=== PATIENT | female | born 1965 | race Two or more races ===

== ENCOUNTER 2021-11-12 21:51 | Emergency (ER) | payer SELFPAY ==
[2021-11-12] MEDS ORDERED: diphenhydrAMINE 50 MG/ML SDV IVPUSH ONE (22:24)
[2021-11-12] MEDS ORDERED: Ondansetron 4 MG/2 ML SDV IVPUSH ONE (22:24)
[2021-11-12] MEDS ORDERED: Sodium Chloride 0.9% 2.5 ML Syringe FLUSH PRN (22:24)
[2021-11-12] MEDS ORDERED: Sodium Chloride 0.9% 1,000 ML IV ONE (22:24)
[2021-11-12] MEDS ORDERED: Sodium Chloride 0.9% 10 ML Syringe FLUSH PRN (22:24)
[2021-11-12] MEDS ORDERED: Ketorolac 30 MG/ML SDV IVPUSH ONE (22:24)
[2021-11-12 23:11] LABS: BLOOD UREA NITROGEN,BUN 12 mg/dL (7.0-18.0); CARBON DIOXIDE,CO2 28.3 mmol/L (21.0-32.0); CHLORIDE,CL 104 mmol/L (98-107); GLUCOSE RANDOM 149 mg/dL (74-106); LIPASE 25 U/L (73-393); POTASSIUM,K 3.4 mmol/L (3.5-5.1); SODIUM,NA 142 mmol/L (136-145)
[2021-11-12 23:23] LABS: CORONAVIRUS COVID-19 NAA NEGATIVE (NEGATIVE); INFLUENZA A NAA NEGATIVE (NEGATIVE); INFLUENZA B NAA NEGATIVE (NEGATIVE)
[2021-11-12] MEDS ORDERED: HYDROmorphone 1 MG/ML Syringe IVPUSH ONE (23:27)
== END 2021-11-13 00:05 | disposition home or self-care (01) ==
LOC: MW.ED 21:51
DX: R51.9 Headache, unspecified (principal); Z20.822 Contact with and (suspected) exposure to COVID-19
CPT/HCPCS: 0240U; 36415; 80053; 83605; 83690; 83735; 84484; 85025; 86140; 93005; 96374; 96375; 99284; J1170; J1200; J1885; J2405; J3490; J7030

== ENCOUNTER 2022-10-12 01:28 | Emergency (ER) | payer SELFPAY ==
[2022-10-12] MEDS ORDERED: Prochlorperazine 10 MG/2 ML SDV IVPUSH ONE (02:52)
[2022-10-12] MEDS ORDERED: Ketorolac 30 MG/ML SDV IVPUSH ONE (02:52)
[2022-10-12] MEDS ORDERED: Acetaminophen 325 MG Tab PO ONE (02:52)
[2022-10-12] MEDS ORDERED: diphenhydrAMINE 50 MG/ML SDV IVPUSH ONE (02:52)
[2022-10-12] MEDS ORDERED: Lactated Ringers 1,000 ML IV SCH (03:00)
[2022-10-12] MEDS ORDERED: oxyCODONE 5 MG Tab PO ONE (04:01)
== END 2022-10-12 05:42 | disposition home or self-care (01) ==
LOC: MW.ED 01:28
DX: R51.9 Headache, unspecified (principal)
CPT/HCPCS: 96361; 96374; 96375; 99283; A9270; J0780; J1200; J1885; J7120; 99284